=== PATIENT | female | born 1970 | race Caucasian/White ===

== ENCOUNTER 2018-04-22 14:02 | Emergency (ER) | payer OTHER, MEDICAID, SELFPAY ==
--- NOTE | 2018-04-22 14:14 | DI.RAD.S_ITS ---
PROCEDURE: XR FOOT LT MIN 3V INDICATIONS: heard a pop yesterday,painful to walk today TECHNIQUE: 3 views of the foot were acquired. COMPARISON: [facility] - [place], [place], ANKLE MIN 3VW (LT), 01/19/2008, 16:43. FINDINGS: Bones: No fractures or dislocations. No suspicious bony lesions. Soft tissues: No tibiotalar joint effusion. Achilles tendon appears normal. IMPRESSION: No visualized acute fracture or dislocation. However, if clinical concern and/or pain persist, short interval imaging followup in 7-10 days is recommended, as occult injury cannot be definitively excluded. Dictated by: Tonya Abbott M.D. on 04/22/2018 at 14:33 Approved by: Tonya Abbott M.D. on 04/22/2018 at 14:40
[2018-04-22 14:15] VITALS: BP 158/82; PULSE 103; RESP 19; TEMP 36.5; O2SAT 96; BMI 39.1
--- NOTE | 2018-04-22 14:40 | ED.LOWEXIN ---
HPI - Extremity Injury (Lower) <Yessi Maher PA-C - Last Filed: 04/22/18 22:13> General Chief Complaint: Extremity Injury, Lower Stated Complaint: 'hurt right foot' Time Seen by Provider: 04/22/18 14:40 Source: patient Mode of arrival: ambulatory Limitations: no limitations History of Present Illness HPI Narrative: This 48-year-old female complains of right foot pain since yesterday. She states that she was running up stairs wearing her work boots and heard a pop sound, then had difficulty bearing weight. She states that pain was worse with her boots off. She has no pain at rest, increased pain with trying to walk or bear weight though she can walk a little bit if she walks only on the inside of her foot. She denies any pain in the ankle, lower leg or knee. She denies any fall or other injury. She has been taking ibuprofen for pain. She does not have a local PCP. Related Data Home Medications Medication Instructions Recorded Confirmed ibuprofen [Advil] 400 mg PO QID PRN 04/22/18 04/22/18 Allergies Allergy/AdvReac Type Severity Reaction Status Date / Time nitrous oxide [NITROUS OXIDE] Allergy Unknown Verified 04/22/18 14:15 Review of Systems <Yessi Maher PA-C - Last Filed: 04/22/18 22:13> Review of Systems All systems reviewed & are unremarkable except as noted in HPI and below PFSH <Yessi Maher PA-C - Last Filed: 04/22/18 22:13> Comment: Denies EtOH Exam <Yessi Maher PA-C - Last Filed: 04/22/18 22:13> Narrative Exam Narrative: GENERAL APPEARANCE: Patient sitting comfortably, in no distress. MUSCULOSKELETAL: Right ankle and foot there is no effusion. Tender throughout the right 2nd through 5th metatarsals. No tenderness over the right ankle or toes. She has full range of motion nonweightbearing without tenderness. Achilles is intact by palpation NEUROVASCULAR: Right foot is warm and pink with brisk cap refill, sensation grossly intact Initial Vital Signs Initial Vital Signs: Vital Signs Temperature 97.7 F 04/22/18 14:15 Pulse Rate 103 H 04/22/18 14:15 Respiratory Rate 19 04/22/18 14:15 Blood Pressure 158/82 H 04/22/18 14:15 Pulse Oximetry 96 04/22/18 14:15 <Wellington Dueñas DO - Last Filed: 04/23/18 07:03> Initial Vital Signs Initial Vital Signs: Vital Signs Temperature 97.7 F 04/22/18 14:15 Pulse Rate 103 H 04/22/18 14:15 Respiratory Rate 19 04/22/18 14:15 Blood Pressure 158/82 H 04/22/18 14:15 Pulse Oximetry 96 04/22/18 14:15 Course <Yessi Maher PA-C - Last Filed: 04/22/18 22:13> Orders Ordered: ED Orders 04/22/18 14:14 XR foot LT min 3V Stat Vital Signs - 8 hr 04/22/18 14:15 04/22/18 15:38 Temperature 97.7 F Pulse Rate 103 H 85 Respiratory Rate 19 15 Blood Pressure 158/82 H Blood Pressure [Left Arm] 164/95 H Pulse Oximetry 96 98 <DO Heber Soto Last Filed: 04/23/18 07:03> Orders Ordered: ED Orders 04/22/18 14:14 XR foot LT min 3V Stat Vital Signs - 8 hr 04/22/18 14:15 04/22/18 15:38 Temperature 97.7 F Pulse Rate 103 H 85 Respiratory Rate 19 15 Blood Pressure 158/82 H Blood Pressure [Left Arm] 164/95 H Pulse Oximetry 96 98 MDM - Extremity Injury (Lower) <Yessi Maher PA-C - Last Filed: 04/22/18 22:13> Imaging Data foot: Radiologist's impression: [place] [address] XRay Report Signed Patient: Willow Hanks#: [id number] : 1970Acct:[id number] Age/Sex: 48 / FDate of Service: 04/22/18 Loc: ED Accession Number: [id number] Procedure: XR foot LT min 3V Ordering Provider: Yessi Maher P.A-C PROCEDURE: XR FOOT LT MIN 3V INDICATIONS: heard a pop yesterday,painful to walk today TECHNIQUE: 3 views of the foot were acquired. COMPARISON: [facility] - [place], CR, ANKLE MIN 3VW (LT), 01/19/2008, 16:43. FINDINGS: Bones: No fractures or dislocations. No suspicious bony lesions. Soft tissues: No tibiotalar joint effusion. Achilles tendon appears normal. IMPRESSION: No visualized acute fracture or dislocation. However, if clinical concern and/or pain persist, short interval imaging followup in 7-10 days is recommended, as occult injury cannot be definitively excluded. Dictated by: Tonya Abbott M.D. on 04/22/2018 at 14:33 Approved by: Tonya Abbott M.D. on 04/22/2018 at 14:40 Discharge Plan Departure Patient Disposition: Home Clinical Impression: Pain in metatarsus of right foot Discharge Date/Time: 04/22/18 15:54 Interventions: ED Discharge Assessment Last Done: 04/22/18 15:49 Instructions: DI for Foot Sprain Activity Restrictions/Additional Instructions: There was no fracture or bone problem found on your x-ray today, so your pain may be due to soft tissue injury or sprain in the tendons or ligaments in the foot. As we talked about, it is important that you rest and avoid bearing weight since it is painful. Please use the crutches and orthopedic shoe that we gave you. You may need repeat x-rays or further imaging studies if this is not improving in the next week. Please call [facility] and make an appointment with 1 of the podiatrists there (Dr. Plasencia or [place]) for follow-up. Take your ibuprofen 4 tablets (800 mg) every 8 hr with food instead of a higher dose less frequently. You can also add Tylenol and [id number] topical medicines as needed for pain. Prescriptions: No Action ibuprofen [Advil] 200 mg Tablet 400 mg PO QID PRN (Reason: Pain (Scale Score 1-3)) RF: 0 Referrals: Viridiana Marquez DPM [Physician] - <Wellington Dueñas DO - Last Filed: 04/23/18 07:03> Cosign ED Attending Cosgregature Attestation: I was available for consultation during this patient's emergency department encounter
--- NOTE | 2018-04-22 14:52 | ED_ITS ---
HPI - Extremity Injury (Lower) <Yessi Maher PA-C - Last Filed: 04/22/18 22:13> General Chief Complaint: Extremity Injury, Lower Stated Complaint: 'hurt right foot' Time Seen by Provider: 04/22/18 14:40 Source: patient Mode of arrival: ambulatory Limitations: no limitations History of Present Illness HPI Narrative: This 48-year-old female complains of right foot pain since yesterday. She states that she was running up stairs wearing her work boots and heard a pop sound, then had difficulty bearing weight. She states that pain was worse with her boots off. She has no pain at rest, increased pain with trying to walk or bear weight though she can walk a little bit if she walks only on the inside of her foot. She denies any pain in the ankle, lower leg or knee. She denies any fall or other injury. She has been taking ibuprofen for pain. She does not have a local PCP. Related Data Home Medications Medication Instructions Recorded Confirmed ibuprofen [Advil] 400 mg PO QID PRN 04/22/18 04/22/18 Allergies Allergy/AdvReac Type Severity Reaction Status Date / Time nitrous oxide [NITROUS OXIDE] Allergy Unknown Verified 04/22/18 14:15 Review of Systems <Yessi Maher PA-C - Last Filed: 04/22/18 22:13> Review of Systems All systems reviewed & are unremarkable except as noted in HPI and below PFSH <Yessi Maher PA-C - Last Filed: 04/22/18 22:13> Comment: Denies EtOH Exam <Yessi Maher PA-C - Last Filed: 04/22/18 22:13> Narrative Exam Narrative: GENERAL APPEARANCE: Patient sitting comfortably, in no distress. MUSCULOSKELETAL: Right ankle and foot there is no effusion. Tender throughout the right 2nd through 5th metatarsals. No tenderness over the right ankle or toes. She has full range of motion nonweightbearing without tenderness. Achilles is intact by palpation NEUROVASCULAR: Right foot is warm and pink with brisk cap refill, sensation grossly intact Initial Vital Signs Initial Vital Signs: Vital Signs Temperature 97.7 F 04/22/18 14:15 Pulse Rate 103 H 04/22/18 14:15 Respiratory Rate 19 04/22/18 14:15 Blood Pressure 158/82 H 04/22/18 14:15 Pulse Oximetry 96 04/22/18 14:15 <Wellington Dueñas DO - Last Filed: 04/23/18 07:03> Initial Vital Signs Initial Vital Signs: Vital Signs Temperature 97.7 F 04/22/18 14:15 Pulse Rate 103 H 04/22/18 14:15 Respiratory Rate 19 04/22/18 14:15 Blood Pressure 158/82 H 04/22/18 14:15 Pulse Oximetry 96 04/22/18 14:15 Course <Yessi Maher PA-C - Last Filed: 04/22/18 22:13> Orders Ordered: ED Orders 04/22/18 14:14 XR foot LT min 3V Stat Vital Signs - 8 hr 04/22/18 14:15 04/22/18 15:38 Temperature 97.7 F Pulse Rate 103 H 85 Respiratory Rate 19 15 Blood Pressure 158/82 H Blood Pressure [Left Arm] 164/95 H Pulse Oximetry 96 98 <DO Heber Soto Last Filed: 04/23/18 07:03> Orders Ordered: ED Orders 04/22/18 14:14 XR foot LT min 3V Stat Vital Signs - 8 hr 04/22/18 14:15 04/22/18 15:38 Temperature 97.7 F Pulse Rate 103 H 85 Respiratory Rate 19 15 Blood Pressure 158/82 H Blood Pressure [Left Arm] 164/95 H Pulse Oximetry 96 98 MDM - Extremity Injury (Lower) <Yessi Maher PA-C - Last Filed: 04/22/18 22:13> Imaging Data foot: Radiologist's impression: [place] [address] XRay Report Signed Patient: Willow Hanks#: [id number] : 1970Acct:[id number] Age/Sex: 48 / FDate of Service: 04/22/18 Loc: ED Accession Number: [id number] Procedure: XR foot LT min 3V Ordering Provider: Yessi Maher P.A-C PROCEDURE: XR FOOT LT MIN 3V INDICATIONS: heard a pop yesterday,painful to walk today TECHNIQUE: 3 views of the foot were acquired. COMPARISON: [facility] [place], ANKLE MIN 3VW (LT), 01/19/2008, 16 :43. FINDINGS: Bones: No fractures or dislocations. No suspicious bony lesions. Soft tissues: No tibiotalar joint effusion. Achilles tendon appears normal. IMPRESSION: No visualized acute fracture or dislocation. However, if clinical concern and/or pain persist, short interval imaging followup in 7-10 days is recommended , as occult injury cannot be definitively excluded. Dictated by: Tonya Abbott M.D. on 04/22/2018 at 14:33 Approved by: Tonya Abbott M.D. on 04/22/2018 at 14:40 Discharge Plan Departure Patient Disposition: Home Clinical Impression: Pain in metatarsus of right foot Discharge Date/Time: 04/22/18 15:54 Interventions: ED Discharge Assessment Last Done: 04/22/18 15:49 Instructions: DI for Foot Sprain Activity Restrictions/Additional Instructions: There was no fracture or bone problem found on your x-ray today, so your pain may be due to soft tissue injury or sprain in the tendons or ligaments in the foot. As we talked about, it is important that you rest and avoid bearing weight since it is painful. Please use the crutches and orthopedic shoe that we gave you. You may need repeat x-rays or further imaging studies if this is not improving in the next week. Please call [facility] and make an appointment with 1 of the podiatrists there (Dr. Plasencia or [place]) for follow-up. Take your ibuprofen 4 tablets (800 mg) every 8 hr with food instead of a higher dose less frequently. You can also add Tylenol and over-the -counter topical medicines as needed for pain. Prescriptions: No Action ibuprofen [Advil] 200 mg Tablet 400 mg PO QID PRN (Reason: Pain (Scale Score 1-3)) RF: 0 Referrals: Viridiana Marquez DPM [Physician] - <Wellington Dueñas DO - Last Filed: 04/23/18 07:03> Cosign ED Attending Cosgregature Attestation: I was available for consultation during this patient's emergency department encounter
[2018-04-22 15:38] VITALS: BP 164/95; PULSE 85; RESP 15; O2SAT 98
== END 2018-04-22 15:54 | disposition home or self-care (01) ==
PROVIDERS: Emergency Provider Internal Medicine
DX: M89.8X7 Other specified disorders of bone, ankle and foot (principal); Y93.02 Activity, running
CPT/HCPCS: 73630; 99282; 99283

== ENCOUNTER 2020-12-29 00:54 | Emergency (ER) | payer OTHER, MEDICAID, SELFPAY ==
[2020-12-29] VITALS (13 sets, daily range): BP systolic 152–205; BP diastolic 71–106; PULSE 77–100; RESP 24; TEMP 37.1; O2SAT 94–97; BMI 48.9
[2020-12-29 02:30] LABS: Add Manual Diff / Slide Review NO; Basophils Absolute Auto 100 /uL (0-100); Basophils Percent Auto 0.9 % (0-2); Eosinophils Absolute Auto 200 /uL (0-450); Eosinophils Percent Auto 1.5 % (2-4); Hematocrit 42.3 % (36-46); Lymphocytes Absolute Auto 3500 /uL (1100-4500); Lymphocytes Percent Auto 32.2 % (25-40); Mean Corpuscular HGB Conc 33.2 % (30-36); Mean Corpuscular Hemoglobin 29.4 PG (26-34); Mean Corpuscular Volume 88.7 fL (80-100); Monocytes Absolute Auto 800 /uL (0-900); Monocytes Percent Auto 7.7 % (3-14); Neutrophils Absolute Auto 6200 /uL (1500-7000); Neutrophils Percent Auto 57.7 % (50-75); Platelet Count 275 X10^3/uL (150-400); Red Blood Cell Count 4.77 X10^6/uL (4.0-5.2); Red Cell Distribution Width 14.7 % (11.6-14.8); White Blood Cell Count 10.7 X10^3/uL (4.5-11.0)
--- NOTE | 2020-12-29 02:32 | DI.US.S_ITS ---
PROCEDURE: US PERIPH VENOUS LOW EXTREM BI INDICATIONS: PAIN, EDEMA TECHNIQUE: Real-time imaging, as well as color and pulse Doppler interrogation, were performed of the deep veins of both legs from the inguinal ligament to the popliteal fossa. COMPARISON: None. FINDINGS: Right: The common femoral, femoral and popliteal veins are normally compressible, and free of intraluminal thrombus. Color and pulse Doppler demonstrate normal phasic intravascular flow. There is normal augmentation response to distal compression maneuver. Left: The common femoral, femoral and popliteal veins are normally compressible, and free of intraluminal thrombus. Color and pulse Doppler demonstrate normal phasic intravascular flow. There is normal augmentation response to distal compression maneuver. IMPRESSION: No evidence of deep vein thrombosis involving the right lower extremity or left lower extremity. Dictated by: Ana Elliott MD, PhD on 12/29/2020 at 8:13 Approved by: Ana Elliott MD, PhD on 12/29/2020 at 8:17
--- NOTE | 2020-12-29 02:35 | ED.SKABFB ---
HPI - Skin/Abscess/Foreign Bdy General Chief complaint: Skin/Abscess/Foreign Body Stated complaint: redness swelling lower legs Time Seen by Provider: 12/29/20 01:58 Source: patient Mode of arrival: Ambulatory Limitations: no limitations History of Present Illness HPI narrative: Patient complains onset 5 days ago bilateral leg pain and swelling. Patient states since then legs/caps twice sized the usually are. Has some small skin opening on the left posterior calf. No prior history of MRSA. Painful with walking. Has circumferential erythema and induration. No fever chills. Patient worked up in the past for pre diabetes. Currently on no medications for diabetes. No official diagnosis of diabetes Related Data Allergies Allergy/AdvReac Type Severity Reaction Status Date / Time nitrous oxide [NITROUS OXIDE] Allergy Unknown Verified 04/22/18 14:15 Review of Systems Review of Systems Narrative: GENERAL: Denies chills, fatigue, malaise, fever, sweats. HEENT: Denies sinus pain, ear pain, sore throat RESPIRATORY: Denies dyspnea, cough CARDIOVASCULAR: Denies chest pain, palpitations GASTROINTESTINAL: Denies nausea, vomiting, abdominal pain : Denies dysuria, frequency, hematuria MUSCULOSKELETAL: denies muscle or bony pain SKIN: Complains of rash/lesions/cellulitis NEUROLOGIC: Denies weakness, numbness ROS Unobtainable: All systems reviewed & are unremarkable except as noted in HPI and below Patient History Medical History (Updated 12/29/20 @ 04:11 by CRISTOBAL Jaeger-SHANTANU) Fibrocystic breast disease (FCBD) Morbid obesity with BMI of 45.0-49.9, adult Surgical History History of breast biopsy Hx of cholecystectomy Family History Mother Lung cancer Father Alzheimer's dementia Diabetes mellitus Sister Diabetes mellitus Grandmother Diabetes mellitus Social History Smoking Status: Current every day smoker Smoking Status: Current every day smoker alcohol intake frequency: 0-2 drinks per day Substance Use Type: does not use Exam Narrative Exam Narrative: GENERAL: in no distress, not toxic not dyspneic HEAD: Normocephalic. EYES: Pupils equal round No scleral icterus. CARDIOVASCULAR: Regular rate and rhythm without murmurs RESPIRATORY: Clear to auscultation. Breath sounds equal bilaterally. No wheezes, rales, or rhonchi. EXTREMITIES: No gross deformities. Bilateral symmetric erythema edema of the calves with induration. No palpable abscess. Very tender to touch. Erythema is circumferential distal half of each leg. No foot involvement. Feet are warm soft and pink with strong pedal pulses. No cyanosis. No palpable cords NEURO: AOx4. SKIN: Warm and dry PSYCH: Not anxious, is cooperative Initial Vital Signs Initial Vital Signs: Vital Signs Temperature 98.7 F 12/29/20 01:22 Pulse Rate 100 H 12/29/20 01:22 Respiratory Rate 24 12/29/20 01:22 Blood Pressure 153/71 H 12/29/20 01:22 Pulse Oximetry 97 12/29/20 01:22 Course Course Course Narrative: No new issues during course of stay Decision to Admit Date: 12/29/20 Decision to Admit time: 03:52 Orders Ordered: ED Orders 12/29/20 02:20 Complete Blood Count AUTO DIFF Stat Comprehensive Metabolic Panel Stat Lactate (Lactic Acid) Stat Procalcitonin Stat 12/29/20 02:32 US periph venous low extrem bi Stat 12/29/20 02:33 COVID19 - ADMIT (INSPECTOR OF DREDGING swab/PCR) Stat 12/29/20 03:51 Blood Culture Stat Acetaminophen (Acetaminophen 325 Mg Tablet) 650 mg PO Q6HR PRN PRN Reason: Fever/Mild Pain (1-3) Enoxaparin Sodium (Enoxaparin 40 Mg/0.4 Ml Syringe) 40 mg SUBCUT DAILY [facility] Lactated Ringer's (Lactated Ringers) 1,000 mls @ 100 mls/hr IV CONT [place] Last Admin: 12/29/20 04:42 Dose: 100 mls/hr Documented by: Ceftriaxone Sodium 1,000 mg/ (Sodium Chloride) 100 mls @ 200 mls/hr IV Q24H [facility] Ketorolac Tromethamine (Ketorolac 30 Mg/Ml Vial) 30 mg IV Q6HR PRN PRN Reason: Pain, Severe (7-10) Stop: 01/03/21 03:59 Lisinopril (Lisinopril 20 Mg Tablet) 20 mg PO DAILY [facility] Naloxone HCl (Naloxone 0.4 Mg/Ml Vial) 0.2 mg IV Q2MIN PRN PRN Reason: Opiate Reversal Ondansetron HCl (Ondansetron 4 Mg/2 Ml Inj) 4 mg IV Q8HR PRN PRN Reason: Nausea And Vomiting Pantoprazole Sodium (Pantoprazole Dr 20 Mg Tablet) 20 mg PO 0600 [place] Last Admin: 12/29/20 05:32 Dose: 20 mg Documented by: Discontinued Medications Doxycycline Hyclate 100 mg/ (Sodium Chloride) 100 mls @ 100 mls/hr IV NOW ONE Stop: 12/29/20 02:35 Last Infusion: 12/29/20 03:53 Dose: 0 mls/hr Documented by: Admin: 12/29/20 02:52 Dose: 100 mls/hr Documented by: SHAAN Reevaluation(s) Reevaluation #1: Patient agrees with admission plan. Understands indication Time: 03:52 Consultations Consultation #1: Spoke with Candice Daily, hospitalist, will admit Time: 03:52 Vital Signs Vital signs: Vital Signs - 8 hr 12/29/20 01:22 Temperature 98.7 F Pulse Rate 100 H Respiratory Rate 24 Blood Pressure 153/71 H Pulse Oximetry 97 MDM - Skin/Abscess/Foreign Bdy Differential Diagnosis Differential diagnosis: Likely cellulitis and other (DVT) Lab Data Attestation: I reviewed the patient's lab results. Result diagrams: 12/29/20 02:20 12/29/20 04:27 Labs: Lab Results 12/29/20 12/29/20 12/29/20 Range/Units 02:20 02:20 02:20 WBC 10.7 (4.5-11.0) X10^3/uL RBC 4.77 (4.0-5.2) X10^6/uL Hgb 14.0 (12.0-16.0) g/dL Hct 42.3 (36-46) % MCV 88.7 (80-100) fL MCH 29.4 (26-34) PG MCHC 33.2 (30-36) % RDW 14.7 (11.6-14.8) % Plt Count 275 (150-400) X10^3/uL Neut % (Auto) 57.7 (50-75) % Lymph % (Auto) 32.2 (25-40) % [place] % (Auto) 7.7 (3-14) % Eos % (Auto) 1.5 L (2-4) % Baso % (Auto) 0.9 (0-2) % Neut # (Auto) 6200 (6771-4344) /uL Lymph # (Auto) 3500 (4931-7125) /uL [place] # (Auto) 800 (0-900) /uL Eos # (Auto) 200 (0-450) /uL Baso # (Auto) 100 (0-100) /uL PT (10.1-12.7) SECONDS INR (0.9-1.3) Sodium 138 (137-145) mmol/L Potassium 4.0 (3.4-5.1) mmol/L Chloride 101 (98-107) mmol/L Carbon Dioxide 31 (22-32) mmol/L BUN 25 H (7-17) mg/dL Creatinine 0.81 (0.52-1.04) mg/dL Estimated GFR > 60.0 (>60) mL/min BUN/Creatinine Ratio 30.9 H (6-22) Glucose 129 H (70-100) mg/dL Hemoglobin A1c (4.0-6.0) % Lactate 0.9 (0.7-2.1) mmol/L Calcium 9.8 (8.4-10.2) mg/dL Total Bilirubin 0.3 (0.2-1.3) mg/dL AST 31 (14-36) IU/L ALT 22 (<35) IU/L Alkaline Phosphatase 125 (38-126) U/L Total Protein 8.0 (6.3-8.2) g/dL Albumin 4.5 (3.5-5.0) g/dL Globulin 3.5 (1.7-4.1) g/dL Albumin/Globulin Ratio 1.3 (1.0-2.8) Lipase (23-300) U/L Procalcitonin 0.05 (<0.5) ng/mL SARS-CoV-2 (PCR) (Negative) 12/29/20 12/29/20 12/29/20 Range/Units 02:20 02:20 02:20 WBC (4.5-11.0) X10^3/uL RBC (4.0-5.2) X10^6/uL Hgb (12.0-16.0) g/dL Hct (36-46) % MCV (80-100) fL MCH (26-34) PG MCHC (30-36) % RDW (11.6-14.8) % Plt Count (150-400) X10^3/uL Neut % (Auto) (50-75) % Lymph % (Auto) (25-40) % [place] % (Auto) (3-14) % Eos % (Auto) (2-4) % Baso % (Auto) (0-2) % Neut # (Auto) (6830-3824) /uL Lymph # (Auto) (4699-6980) /uL [place] # (Auto) (0-900) /uL Eos # (Auto) (0-450) /uL Baso # (Auto) (0-100) /uL PT 12.2 (10.1-12.7) SECONDS INR 1.1 (0.9-1.3) Sodium (137-145) mmol/L Potassium (3.4-5.1) mmol/L Chloride (98-107) mmol/L Carbon Dioxide (22-32) mmol/L BUN (7-17) mg/dL Creatinine (0.52-1.04) mg/dL Estimated GFR (>60) mL/min BUN/Creatinine Ratio (6-22) Glucose (70-100) mg/dL Hemoglobin A1c 7.0 H (4.0-6.0) % Lactate (0.7-2.1) mmol/L Calcium (8.4-10.2) mg/dL Total Bilirubin (0.2-1.3) mg/dL AST (14-36) IU/L ALT (<35) IU/L Alkaline Phosphatase (38-126) U/L Total Protein (6.3-8.2) g/dL Albumin (3.5-5.0) g/dL Globulin (1.7-4.1) g/dL Albumin/Globulin Ratio (1.0-2.8) Lipase 34 (23-300) U/L Procalcitonin (<0.5) ng/mL SARS-CoV-2 (PCR) (Negative) 12/29/20 Range/Units 02:33 WBC (4.5-11.0) X10^3/uL RBC (4.0-5.2) X10^6/uL Hgb (12.0-16.0) g/dL Hct (36-46) % MCV (80-100) fL MCH (26-34) PG MCHC (30-36) % RDW (11.6-14.8) % Plt Count (150-400) X10^3/uL Neut % (Auto) (50-75) % Lymph % (Auto) (25-40) % [place] % (Auto) (3-14) % Eos % (Auto) (2-4) % Baso % (Auto) (0-2) % Neut # (Auto) (2348-3815) /uL Lymph # (Auto) (7332-0877) /uL [place] # (Auto) (0-900) /uL Eos # (Auto) (0-450) /uL Baso # (Auto) (0-100) /uL PT (10.1-12.7) SECONDS INR (0.9-1.3) Sodium (137-145) mmol/L Potassium (3.4-5.1) mmol/L Chloride (98-107) mmol/L Carbon Dioxide (22-32) mmol/L BUN (7-17) mg/dL Creatinine (0.52-1.04) mg/dL Estimated GFR (>60) mL/min BUN/Creatinine Ratio (6-22) Glucose (70-100) mg/dL Hemoglobin A1c (4.0-6.0) % Lactate (0.7-2.1) mmol/L Calcium (8.4-10.2) mg/dL Total Bilirubin (0.2-1.3) mg/dL AST (14-36) IU/L ALT (<35) IU/L Alkaline Phosphatase (38-126) U/L Total Protein (6.3-8.2) g/dL Albumin (3.5-5.0) g/dL Globulin (1.7-4.1) g/dL Albumin/Globulin Ratio (1.0-2.8) Lipase (23-300) U/L Procalcitonin (<0.5) ng/mL SARS-CoV-2 (PCR) Negative (Negative) Imaging Data US - DVT: My Impression: Preliminary report from mathematical technician negative DVT bilateral legs Radiologist's Impression: Ultrasound bilateral legs read by overnight radiologist no evidence of deep vein thrombosis in the lower extremities bilaterally MDM Narrative Medical decision making narrative: Appropriate for admission. And extensive cellulitis bilaterally in very rapid short amount of time. Would benefit for IV antibiotics. Likely not get better with outpatient antibiotics Discharge Plan Departure Patient Disposition: Admitted as Observation Clinical Impression: Cellulitis Qualifiers: Site of cellulitis: unspecified site Qualified Code(s): L03.90 - Cellulitis, unspecified Admit Date/Time: 12/29/20 03:52 Admit Provider: Candice Daily
[2020-12-29 02:41] LABS: Alanine Aminotransferase 22 IU/L (<35); Albumin 4.5 g/dL (3.5-5.0); Albumin Globulin Ratio 1.3 (1.0-2.8); Alkaline Phosphatase 125 U/L (38-126); Aspartate Aminotransferase 31 IU/L (14-36); BUN Creatinine Ratio 30.9 (6-22); Bilirubin Total 0.3 mg/dL (0.2-1.3); Blood Urea Nitrogen 25 mg/dL (7-17); Calcium 9.8 mg/dL (8.4-10.2); Carbon Dioxide 31 mmol/L (22-32); Chloride 101 mmol/L (98-107); Estimated Glomerular Filt Rate > 60.0 mL/min (>60); Globulin 3.5 g/dL (1.7-4.1); Glucose 129 mg/dL (70-100); HEMOLYSIS < 15 (0-50); Sodium 138 mmol/L (137-145)
[2020-12-29] MEDS: DOXYCYCLINE 100 MG in SODIUM CHLORIDE 0.9% 100 ML IV (02:52)
[2020-12-29 02:54] LABS: Lactate (Lactic Acid) 0.9 mmol/L (0.7-2.1)
[2020-12-29 02:57] LABS: Procalcitonin 0.05 ng/mL (<0.5)
[2020-12-29 03:31] LABS: COVID19 - ADMIT (NP swab/PCR) Negative (Negative)
--- NOTE | 2020-12-29 04:04 | P.HP_ITS ---
History of Present Illness History of Present Illness Date Patient Seen: 12/29/20 Time Patient Seen: 04:04 Chief complaint: redness swelling lower legs Narrative: Patient is a 50-year-old female Willow Hanks who presented to the ED with a chief compliant bilateral leg swelling x 10 days. Then 5 days ago after being scratched by her kitten, the scratches developed in to larger open sores in the legs became red hot, painful, and angry. Patient states since then legs/calfs have doubled in size. Patient states the pain is greater in the left over the right. She endorses that she has had bilateral peripheral edema occasional No prior history of MRSA. But reports that her daughter has had multiple cases of cellulitis MRSA skin infections that she is needs to be treated for. Patient also states that she lives in an with her boyfriend and they move around [place] [facility] [place] [facility] using the park bathrooms and showers. Painful with walking. Has circumferential erythema and induration. No chest pain, shortness of breath, fever, chills, diaphoresis, or bodyaches. Patient reports that she has sensed a rapid heartbeat from time to time but never skipped beats. Patient denies any cardiac history, or any other medical history, with the exception of a work up in the past for pre diabetes. Currently on no medications, and is a half a pack a day smoker. Patient has slight hypertension and tachypnea upon admission. All of patient's labs are within normal limits, with the exception of a BUN of 25 and glucose 129. Lactate and procalcitonin are within normal limits. Lower extremity bilateral ultrasound is unremarkable for DVT. Patient has no pertinent medical history other than morbid obesity. Patient has multiple risk factors for Staph aureus MRSA due to exposure from a close family member, and use of public bathrooms, blood and wound cultures pending. Patient to be admitted for observation for lateral lower extremity cellulitis. Patient History Medical History (Updated 12/29/20 @ 04:11 by KWAME Jaeger) Fibrocystic breast disease (FCBD) Morbid obesity with BMI of 45.0-49.9, adult Surgical History History of breast biopsy Hx of cholecystectomy Family & Social History Family History Mother Lung cancer Father Alzheimer's dementia Diabetes mellitus Sister Diabetes mellitus Grandmother Diabetes mellitus Safety & Behavioral: Feels Safe in Current Yes Environment Been Physically Hurt or No Threatened By a Person Tobacco & Substance use: Smoking Status Current every day smoker alcohol intake frequency 0-2 drinks per day Substance Use Type does not use Meds Home Medications and Allergies Allergies Allergy/AdvReac Type Severity Reaction Status Date / Time nitrous oxide [NITROUS OXIDE] Allergy Unknown Verified 04/22/18 14:15 Review of Systems Review of Systems ROS: Yes All systems reviewed with the patient and are negative except as otherwise documented Musculoskeletal Comments: Bilateral leg pain, left greater than right Exam Vital Signs (past 8 hours): - 12/29/20 01:22 Temperature 98.7 F Pulse Rate 100 H Respiratory Rate 24 Blood Pressure 153/71 H Pulse Oximetry 97 Oxygen Delivery Method Room Air Narrative Exam Narrative: General: Patient is a pleasant well-developed, well-nourished morbidly obese female in no distress at this time. HEENT: Normocephalic, atraumatic, extraocular muscles intact, oral pharynx is clear and mucous membranes are moist. Neck is supple and symmetric, trachea is midline, no adenopathy, no thyroid enlargement, nontender, no masses palpated. Negative for JVD Chest: Normal AP diameter and contour without kyphoscoliosis, no nasal flaring, retractions, or tachypneic labored Lungs: Auscultation of all lung bangura are clear without adventitious sounds, wheezes, rhonchi, or rales. Cardio: S1 & S2 with regular rate and rhythm without murmur, rubs, or gallops, no carotid bruit, no cardiac pulsations present. Abdomen: Soft nontender, negative for organomegaly, or masses. Bowel sounds are present in all 4 quadrants without guarding or rebound, no CVA tenderness. Musculoskeletal: Bilateral symmetric, erythemic, edema, warm to touch, of the calves with induration. Blanchable, nonpitting. No palpable abscess. Multiple tac size open sores present to lower calf areas, without drainage in ad ditional multiple erythema could areas that appear like insect bites. Possible Tender to touch, greater on the left/right. Erythema is circumferential distal half of each leg. No foot involvement. Feet: skin is dry, cracked, all nails have onychomycosis involvement, radial and pedal pulses are normal. Skin: Warm dry and intact without rashes, ulcerations or petechiae. Neuro: Alert and orientated x3, strength is +5/5 in all extremities, sensation to touch intact, no gross deficits noted of cranial nerves. Psych: Patient has a well-kept appearance, appropriate affect, mental status attitude thought context and judgment are appropriate for age. Objective Labs Result Diagrams: 12/29/20 02:20 12/29/20 02:20 Labs: Laboratory Results - last 24 hr 12/29/20 12/29/20 12/29/20 02:20 02:20 02:20 WBC 10.7 RBC 4.77 Hgb 14.0 Hct 42.3 MCV 88.7 MCH 29.4 MCHC 33.2 RDW 14.7 Plt Count 275 Neut % (Auto) 57.7 Lymph % (Auto) 32.2 [place] % (Auto) 7.7 Eos % (Auto) 1.5 L Baso % (Auto) 0.9 Neut # (Auto) 6200 Lymph # (Auto) 3500 [place] # (Auto) 800 Eos # (Auto) 200 Baso # (Auto) 100 Sodium 138 Potassium 4.0 Chloride 101 Carbon Dioxide 31 BUN 25 H Creatinine 0.81 Estimated GFR > 60.0 BUN/Creatinine Ratio 30.9 H Glucose 129 H Lactate 0.9 Calcium 9.8 Total Bilirubin 0.3 AST 31 ALT 22 Alkaline Phosphatase 125 Total Protein 8.0 Albumin 4.5 Globulin 3.5 Albumin/Globulin Ratio 1.3 Procalcitonin 0.05 SARS-CoV-2 (PCR) 12/29/20 02:33 WBC RBC Hgb Hct MCV MCH MCHC RDW Plt Count Neut % (Auto) Lymph % (Auto) [place] % (Auto) Eos % (Auto) Baso % (Auto) Neut # (Auto) Lymph # (Auto) [place] # (Auto) Eos # (Auto) Baso # (Auto) Sodium Potassium Chloride Carbon Dioxide BUN Creatinine Estimated GFR BUN/Creatinine Ratio Glucose Lactate Calcium Total Bilirubin AST ALT Alkaline Phosphatase Total Protein Albumin Globulin Albumin/Globulin Ratio Procalcitonin SARS-CoV-2 (PCR) Negative Assessment & Plan Assessment & Plan narrative: 1 Cellulitis bilateral lower leg, acute, nonpurulent, present on admission -rule out osteomyelitis, gas gangrene necrotizing fasciitis. Determine if infection is staph MRSA-blood/wound cultures pending. -patient admitted for risk factors for MRSA, cellulitis with progressive cli nical findings and worsening signs/symptoms with signs of systemic toxicity- tachycardia -elevate affected legs, BIlateral lower leg ultrasound in the ED negative for DVT -monitor for hyponatremia elevated CPK or AST -wells criteria score: 1.5, Sofa score:0 -patient for observation, vital signs q.4 hours, intake and output monitored Q shift, weight measure daily, diet: Regular, IV fluids: LR at 100 cc/hour. -patient had a dose of doxycycline in the ED, ordered Rocephin IV 1 g Q 24 hours -daily labs ordered A1C, CMP, Procalcitonin, PT/INR, Lipase Qam, Blood cultures drawn in ED 2. Elevated blood pressure, acute possibly on chronic, present on admission -as evidence by initial blood sugar 164/85-ordered lisinopril 20 mg p.o. q.day 3. Elevated blood sugar, acute (likely on chronic, present on admission -will order A1c in the a.m. to determine diabetes status. 4. Morbid obesity as evidenced by BMI of 48.9, acute on chronic, present on admission -dietary consult ordered, consideration will be given to dietary counseling. Code status: Full code COVID PCR: Negative Designated surrogate decision maker: Daughter Michelle Matson DVT/VTE prophylaxis: Lovenox 40 mg/SCDs contraindicated Scores GCS [place] coma scale eye opening: Spontaneous [place] coma scale verbal response: Orientated [place] coma scale motor response: Obey commands [place] coma scale total score: 15 SOFA PaO2/FIO2: >=400 mmHg Platelets: >= 150 Bilirubin: < 1.2 mg/dL Hypotension: MAP >= 70 mmHg [place] Coma Scale: 15 Renal: < 1.2 mg/dL SOFA Score: 0 Wells' Criteria for PE Clinical signs and symptoms of DVT: No PE is #1 Dx or equally likely: No Heart rate > 100: Yes Immobilization at least 3 days or surg in previous 4 weeks: No History of PE or DVT: No Hemoptysis: No Malignancy w/Treatment within 6 months or palliative: No Wells' PE Score total: 1.5
[2020-12-29 04:30] LABS: Lipase 34 U/L (23-300)
[2020-12-29] MEDS: LACTATED RINGERS 1,000 ML 100 ML IV (04:42)
[2020-12-29 04:46] LABS: INR 1.1 (0.9-1.3); Prothrombin Time 12.2 SECONDS (10.1-12.7)
[2020-12-29 04:57] LABS: BUN Creatinine Ratio 33.3 (6-22); Blood Urea Nitrogen 24 mg/dL (7-17); Calcium 9.4 mg/dL (8.4-10.2); Carbon Dioxide 29 mmol/L (22-32); Chloride 102 mmol/L (98-107); Creatine Kinase 91 U/L (30-135); Estimated Glomerular Filt Rate > 60.0 mL/min (>60); Glucose 135 mg/dL (70-100); HEMOLYSIS < 15 (0-50); Potassium 3.9 mmol/L (3.4-5.1); Sodium 138 mmol/L (137-145)
[2020-12-29 05:05] LABS: NT-proBNP (BNP-Adult 18+) 103 pg/mL (<125)
[2020-12-29 05:13] LABS: Procalcitonin 0.05 ng/mL (<0.5)
[2020-12-29] MEDS: PANTOPRAZOLE DR 20 MG TABLET PO (05:32)
[2020-12-29] MEDS: lisinopriL 20 MG TABLET PO (07:42)
[2020-12-29] MEDS: ENOXAPARIN 40 MG/0.4 ML SYRINGE SUBCUT (09:16)
[2020-12-29] MEDS: cefTRIAXone 1,000 MG in SODIUM CHLORIDE 0.9% 100 ML 200 ML IV (09:16)
--- NOTE | 2020-12-29 10:48 | PC.NURSE ---
pt being d/c from ER by hospitalist. student accounts coordinator did d/c assessment since pt is admitted but boarding in the ER. IV removed.
--- NOTE | 2020-12-29 13:16 | CM.IDA ---
Initial DCP Assessment Note Patient is a 50 yo female, living in her RV w/spouse at the [facility]. Presents w/redness and swelling in her BLE. PCP: Unlisted Payer: Sylvester/LEVI According to chart review, patient is indp, lives w/spouse and their pets in their RV. Patient uses the public BR in the [place] for hygiene needs. Patient admitted and kept in the ER for treatment of cellulitis, seen and discharged by Dr Leach today. This HEADHUNTER discussed patient w/Dr Leach who denied any needs from this HEADHUNTER. Patient will DC back to RV w/prescribed po abx. No SW needs. JW
--- NOTE | 2020-12-29 19:14 | P.DS_ITS ---
History of Present Illness History of Present Illness Chief complaint: redness swelling lower legs Narrative: Patient is a 50-year-old female Willow Hanks who presented to the ED with a chief compliant bilateral leg swelling x 10 days. Then 5 days ago after being scratched by her kitten, the scratches developed in to larger open sores in the legs became red hot, painful, and angry. Patient states since then legs/calfs have doubled in size. Patient states the pain is greater in the left over the right. She endorses that she has had bilateral peripheral edema occasional No prior history of MRSA. But reports that her daughter has had multiple cases of cellulitis MRSA skin infections that she is needs to be treated for. Patient also states that she lives in an with her boyfriend and they move around from [facility] [place] [facility] using the park bathrooms and showers. Painful with walking. Has circumferential erythema and induration. No chest pain, shortness of breath, fever, chills, diaphoresis, or bodyaches. Patient reports that she has sensed a rapid heartbeat from time to time but never skipped beats. Patient denies any cardiac history, or any other medical history, with the exception of a work up in the past for pre diabetes. Currently on no medications, and is a half a pack a day smoker. Patient has slight hypertension and tachypnea upon admission. All of patient's labs are within normal limits, with the exception of a BUN of 25 and glucose 129. Lactate and procalcitonin are within normal limits. Lower extremity bilateral ultrasound is unremarkable for DVT. Patient has no pertinent medical history other than morbid obesity. Patient has multiple risk factors for Staph aureus MRSA due to exposure from a close family member, and use of public bathrooms, blood and wound cultures pending. Patient to be admitted for observation for lateral lower extremity cellulitis. Discharge Providers Provider Date of admission: 12/29/20 03:52 Discharge Date: 12/29/20 Consults: 12/29/20 04:01 Consult to Dietitian, Adult Routine Comment: Reason For Exam: morbid obesity Discharge provider: Get Leach MD Summary Hospital Course Discharge Diagnosis: 1. Bilateral lower extremity cellulitis 2. Venous stasis Patient was admitted for bilateral lower extremity cellulitis. There was no fever or elevated white blood cell count. She was started on Rocephin. She has macular erythema of the lower legs with some red papules and on the left burns she has a surface ulcer forming. She reported kidneys at home that scratched her legs. She remained stable and discharged following day on combination of cephalexin and Bactrim. She was also given 10 day prescription for Lasix to help with venous stasis edema. She will follow-up at outpatient clinic. Status at Discharge Cognitive/behavioral status at discharge: oriented Functional status at discharge: independent ambulation Overall status at discharge: patient is progressing back to baseline Exam Vital Signs (past 8 hours): Oxygen Delivery Method Room Air Objective Labs Result Diagrams: 12/29/20 02:20 12/29/20 04:27 Labs: Laboratory Results - last 24 hr 12/29/20 12/29/20 12/29/20 02:20 02:20 02:20 WBC 10.7 RBC 4.77 Hgb 14.0 Hct 42.3 MCV 88.7 MCH 29.4 MCHC 33.2 RDW 14.7 Plt Count 275 Neut % (Auto) 57.7 Lymph % (Auto) 32.2 [place] % (Auto) 7.7 Eos % (Auto) 1.5 L Baso % (Auto) 0.9 Neut # (Auto) 6200 Lymph # (Auto) 3500 [place] # (Auto) 800 Eos # (Auto) 200 Baso # (Auto) 100 PT INR Sodium 138 Potassium 4.0 Chloride 101 Carbon Dioxide 31 BUN 25 H Creatinine 0.81 Estimated GFR > 60.0 BUN/Creatinine Ratio 30.9 H Glucose 129 H Hemoglobin A1c Lactate 0.9 Calcium 9.8 Total Bilirubin 0.3 AST 31 ALT 22 Alkaline Phosphatase 125 Total Creatine Kinase NT-Pro-B Natriuret Pep Total Protein 8.0 Albumin 4.5 Globulin 3.5 Albumin/Globulin Ratio 1.3 Lipase Procalcitonin 0.05 SARS-CoV-2 (PCR) 12/29/20 12/29/20 12/29/20 02:20 02:20 02:20 WBC RBC Hgb Hct MCV MCH MCHC RDW Plt Count Neut % (Auto) Lymph % (Auto) [place] % (Auto) Eos % (Auto) Baso % (Auto) Neut # (Auto) Lymph # (Auto) [place] # (Auto) Eos # (Auto) Baso # (Auto) PT 12.2 INR 1.1 Sodium Potassium Chloride Carbon Dioxide BUN Creatinine Estimated GFR BUN/Creatinine Ratio Glucose Hemoglobin A1c 7.0 H Lactate Calcium Total Bilirubin AST ALT Alkaline Phosphatase Total Creatine Kinase NT-Pro-B Natriuret Pep Total Protein Albumin Globulin Albumin/Globulin Ratio Lipase 34 Procalcitonin SARS-CoV-2 (PCR) 12/29/20 12/29/20 02:33 04:27 WBC RBC Hgb Hct MCV MCH MCHC RDW Plt Count Neut % (Auto) Lymph % (Auto) [place] % (Auto) Eos % (Auto) Baso % (Auto) Neut # (Auto) Lymph # (Auto) [place] # (Auto) Eos # (Auto) Baso # (Auto) PT INR Sodium 138 Potassium 3.9 Chloride 102 Carbon Dioxide 29 BUN 24 H Creatinine 0.72 Estimated GFR > 60.0 BUN/Creatinine Ratio 33.3 H Glucose 135 H Hemoglobin A1c Lactate Calcium 9.4 Total Bilirubin AST ALT Alkaline Phosphatase Total Creatine Kinase 91 NT-Pro-B Natriuret Pep 103 Total Protein Albumin Globulin Albumin/Globulin Ratio Lipase Procalcitonin 0.05 SARS-CoV-2 (PCR) Negative [facility] Medical History (Updated 12/29/20 @ 04:11 by CRISTOBAL Jaeger-SHANTANU) Fibrocystic breast disease (FCBD) Morbid obesity with BMI of 45.0-49.9, adult Surgical History History of breast biopsy Hx of cholecystectomy Family History Mother Lung cancer Father Alzheimer's dementia Diabetes mellitus Sister Diabetes mellitus Grandmother Diabetes mellitus Social History Smoking Status: Current every day smoker Discharge Plan Discharge Plan Patient Disposition: Home Provider Discharge Comment: You were treated for cellulitis. Complete prescribed antibiotics. I have also prescribed diuretic to take for fluid in the legs. Follow up in clinic next week. Discharge orders & Medications Prescriptions: New sulfamethoxazole-trimethoprim [Bactrim DS] 800-160 mg tablet 1 tab PO Q12H Qty: 20 RF: 0 cephalexin 500 mg tablet 500 mg PO QID Qty: 40 RF: 0 furosemide 20 mg tablet 20 mg PO DAILY Qty: 10 RF: 0 mupirocin 2 % ointment 1 applic topical BID Qty: 15 RF: 0 Discharge Health Status Multidrug resistant organism: No MDRO Diet/Activity/Treatments Diet: Regular Skin/Wound/Dressing Care Report to your healthcare provider any signs of infection, such as:: chills, fever, unusual drainage and unusual redness Discharge Data Attending Provider: Candice Daily
== END 2020-12-29 10:47 | disposition admitted as inpatient to this hospital (09) ==
LOC: ED 03:06 → AC 03:53
PROVIDERS: Nurse Practitioner Family; Emergency Provider Emergency Medicine; Referring Provider Emergency Medicine
DX: L03.116 Cellulitis of left lower limb (principal); L03.115 Cellulitis of right lower limb; Z20.822 Contact with and (suspected) exposure to COVID-19
CPT/HCPCS: 36415; 80048; 80053; 82550; 83036; 83605; 83690; 83880; 84145; 85025; 85610; 87040; 87635; 93970; 96361; 96365; 96367; 96372; 99284; C9803; J0696; J1650

== ENCOUNTER 2021-02-15 01:52 | Emergency (ER) | payer OTHER, MEDICAID, SELFPAY ==
[2021-02-15 02:54] VITALS: BP 195/89; PULSE 101; RESP 22; TEMP 36.9; O2SAT 98; BMI 47.0
--- NOTE | 2021-02-15 04:23 | ED.WOUNDLAC ---
HPI - Wound/Laceration General Chief Complaint: Wound/Laceration Stated Complaint: leg cellulitis/ sore on left Time Seen by Provider: 02/15/21 04:09 Source: patient Mode of arrival: Ambulatory Limitations: no limitations History of Present Illness HPI narrative: This is a 51-year-old female comes emergency department with complaint of swelling, redness of bilateral lower extremities as well as a wound on her left calf which has not been healing. Patient states it has been present for some time. She was not having much drainage but has started developed a little bit of serosanguineous but occasionally purulent drainage and also has had increasing pain over the last week. Patient has not had any fevers but she has felt warm she denies any chest pain or shortness of breath. She denies any nausea or vomiting. She denies any issues other than intermittent constipation. She does have some urinary incontinence particularly in the mornings. Patient states that she has had swelling intermittently but it is much worse in her lower extremities than normal. She also notes that she has not seen a physician in some time. She was admitted here in December for cellulitis of her lower extremity and they suspected that it was secondary to cat scratches. She has multiple kids that live at home. Patient states that afterwards her her redness had improved she was initially on cephalexin this was later changed to Bactrim and that seemed to be much more effective. Patient states that the redness has been slowly creeping up over the past month. The main reason she came today was because of increasing pain at the wound. Related Data Previous Rx's Medication Instructions Recorded cephalexin 500 mg tablet 500 mg PO QID #40 tab 12/29/20 furosemide 20 mg tablet 20 mg PO DAILY #10 tab 12/29/20 mupirocin 2 % topical ointment 1 applic TOPICAL BID #15 g 12/29/20 sulfamethoxazole 800 1 tab PO Q12H #20 tab 12/29/20 mg-trimethoprim 160 mg tablet (Bactrim DS) furosemide 40 mg tablet (Lasix) 40 mg PO DAILY #7 tab 02/15/21 sulfamethoxazole 800 1 tab PO Q12H #20 tab 02/15/21 mg-trimethoprim 160 mg tablet (Bactrim DS) Allergies Allergy/AdvReac Type Severity Reaction Status Date / Time nitrous oxide [NITROUS OXIDE] Allergy Unknown Verified 04/22/18 14:15 Review of Systems Review of Systems ROS Unobtainable: All systems reviewed & are unremarkable except as noted in HPI and below Patient History Medical History Fibrocystic breast disease (FCBD) Morbid obesity with BMI of 45.0-49.9, adult Surgical History History of breast biopsy Hx of cholecystectomy Family History Mother Lung cancer Father Alzheimer's dementia Diabetes mellitus Sister Diabetes mellitus Grandmother Diabetes mellitus Social History Smoking Status: Current every day smoker Smoking Status: Current every day smoker alcohol intake frequency: 0-2 drinks per day Substance Use Type: does not use Exam Narrative Exam Narrative: GENERAL: Alert and oriented x three, female and mild distress. HEENT: Head normocephalic, atraumatic, EOMI, pupils reactive, face symmetric, moist mucous membranes NECK: Supple, full range of motion CARDIOVASCULAR: Regular rate and rhythm without murmurs, rubs or gallops. RESPIRATORY: Breath sounds equal bilaterally, no wheezes rales or rhonchi. ABDOMEN: Soft, nontender. Normoactive bowel sounds all 4 quadrants. No guarding or rebound, rigidity, no mass : No CVA tenderness EXTREMITIES: Normal range of motion, no clubbing. Patient has bilateral lower extremity edema 2+. Patient does have mild erythema bilateral lower extremities as well as hyperpigmentation and slight warmth over both lower extremities extending up about mid calf. Patient also has some brawny discoloration and hyperpigmentation of her lower extremities consistent with chronic venous stasis. Patient has normal sensation throughout. She has cap refill less than 2 seconds bilateral lower extremities. She does have a wound that is 1/2 cm on the left lower leg on the inner calf with small amount of purulent drainage on a 4 x 4. There is no active drainage at this time. There is erythematous subcutaneous tissue exposed. Area is tender to touch. Neurovascularly intact NEUROLOGICAL: Cranial nerves II through XII grossly intact. Moving all extremities SKIN: Warm, dry, no petechiae, no rashes noted. Initial Vital Signs Initial Vital Signs: Vital Signs Temperature 98.5 F 02/15/21 02:54 Pulse Rate 101 H 02/15/21 02:54 Respiratory Rate 22 02/15/21 02:54 Blood Pressure 195/89 H 02/15/21 02:54 Pulse Oximetry 98 02/15/21 02:54 Course Orders Ordered: ED Orders 02/15/21 03:45 Complete Blood Count AUTO DIFF Stat 02/15/21 03:49 Wound Culture and Gram Stain Stat 02/15/21 05:54 Basic Metabolic Panel Stat NT-proBNP (BNP-Adult 18+) Stat Procalcitonin Stat Troponin & CK Cardiac Panel Stat Discontinued Medications Furosemide (Furosemide 40 Mg/4 Ml Vial) 40 mg IV NOW ONE Stop: 02/15/21 04:44 Last Admin: 02/15/21 04:57 Dose: 40 mg Documented by: SHAAN Trimethoprim/Sulfamethoxazole (Trimeth/Sulfa 160/800 (Ds) Tablet) 1 tab PO NOW ONE Stop: 02/15/21 04:44 Last Admin: 02/15/21 04:56 Dose: 1 tab Documented by: SHAAN Vital Signs Vital signs: Vital Signs - 8 hr 02/15/21 02:54 02/15/21 07:09 Temperature 98.5 F Pulse Rate 101 H 97 H Respiratory Rate 22 20 Blood Pressure 195/89 H 212/102 H Pulse Oximetry 98 97 MDM - Wound/Laceration Lab Data Result diagrams: 02/15/21 03:45 02/15/21 05:54 Labs: Lab Results 02/15/21 02/15/21 02/15/21 Range/Units 03:45 05:54 05:54 WBC 10.9 (4.5-11.0) X10^3/uL RBC 4.72 (4.0-5.2) X10^6/uL Hgb 14.0 (12.0-16.0) g/dL Hct 41.6 (36-46) % MCV 88.2 (80-100) fL MCH 29.6 (26-34) PG MCHC 33.5 (30-36) % RDW 15.2 H (11.6-14.8) % Plt Count 264 (150-400) X10^3/uL Neut % (Auto) 57.2 (50-75) % Lymph % (Auto) 34.5 (25-40) % [place] % (Auto) 6.1 (3-14) % Eos % (Auto) 1.7 L (2-4) % Baso % (Auto) 0.5 (0-2) % Neut # (Auto) 6200 (2072-8590) /uL Lymph # (Auto) 3800 (3393-6071) /uL [place] # (Auto) 700 (0-900) /uL Eos # (Auto) 200 (0-450) /uL Baso # (Auto) 100 (0-100) /uL Sodium 138 (137-145) mmol/L Potassium 4.0 (3.4-5.1) mmol/L Chloride 101 (98-107) mmol/L Carbon Dioxide 30 (22-32) mmol/L BUN 20 H (7-17) mg/dL Creatinine 0.58 (0.52-1.04) mg/dL Estimated GFR > 60.0 (>60) mL/min BUN/Creatinine Ratio 34.5 H (6-22) Glucose 142 H (70-100) mg/dL Calcium 9.6 (8.4-10.2) mg/dL Total Creatine Kinase 70 (30-135) U/L CK-MB (CK-2) TNP CK-MB (CK-2) Rel Index TNP Troponin I < 0.012 (0.01-0.034) ng/mL NT-Pro-B Natriuret Pep 114 (<125) pg/mL Procalcitonin 0.05 (<0.5) ng/mL MDM Narrative Medical decision making narrative: Wound care referral sent. Patient has not been following regularly with primary care and was recommended does dose with primary care. Patient has bilateral lower extremity edema, does not any chest pain or shortness of breath, troponin a BNP their normal range. Patient is hypertensive initially upon arrival. She has had chronic lower extremity swelling that is worse than normal. She was admitted in the last month for similar symptoms was put on oral antibiotics discharge home and had some improvement with some recurrence. Patient was once again put on Lasix, she states the Bactrim was the most helpful for her wound and a referral was sent patient was encouraged to get established. Discharge Plan Departure Patient Disposition: Home Clinical Impression: Bilateral edema of lower extremity, Wound of left leg Instructions: DI for Wound Infection Activity Restrictions/Additional Instructions: Febrile your developing an infection of your extremity of your lower leg. I would recommend continuing oral antibiotics. Referrals also included for wound care. Call for an appointment. Paperwork has been filled out today to be faxed to the office. Also included is options for follow-up with primary care. Prescription to [facility]. Please return for fevers, worsening swelling of your lower extremities, increasing purulent drainage, fevers, chest pain or shortness of breath, persistent vomiting, black or bloody stools or other new or concerning symptoms. Prescriptions: New sulfamethoxazole-trimethoprim [Bactrim DS] 800-160 mg tablet 1 tab PO Q12H Qty: 20 RF: 0 furosemide [Lasix] 40 mg tablet 40 mg PO DAILY Qty: 7 RF: 0 No Action sulfamethoxazole-trimethoprim [Bactrim DS] 800-160 mg tablet 1 tab PO Q12H Qty: 20 RF: 0 cephalexin 500 mg tablet 500 mg PO QID Qty: 40 RF: 0 furosemide 20 mg tablet 20 mg PO DAILY Qty: 10 RF: 0 mupirocin 2 % ointment 1 applic topical BID Qty: 15 RF: 0 Referrals: Sergio Argueta MD [Physician] - Luis Cook MD [Physician] -
[2021-02-15 04:50] LABS: Add Manual Diff / Slide Review NO; Basophils Absolute Auto 100 /uL (0-100); Basophils Percent Auto 0.5 % (0-2); Eosinophils Absolute Auto 200 /uL (0-450); Eosinophils Percent Auto 1.7 % (2-4); Hematocrit 41.6 % (36-46); Lymphocytes Absolute Auto 3800 /uL (1100-4500); Lymphocytes Percent Auto 34.5 % (25-40); Mean Corpuscular HGB Conc 33.5 % (30-36); Mean Corpuscular Hemoglobin 29.6 PG (26-34); Mean Corpuscular Volume 88.2 fL (80-100); Monocytes Absolute Auto 700 /uL (0-900); Monocytes Percent Auto 6.1 % (3-14); Neutrophils Absolute Auto 6200 /uL (1500-7000); Neutrophils Percent Auto 57.2 % (50-75); Platelet Count 264 X10^3/uL (150-400); Red Blood Cell Count 4.72 X10^6/uL (4.0-5.2); Red Cell Distribution Width 15.2 % (11.6-14.8); White Blood Cell Count 10.9 X10^3/uL (4.5-11.0)
[2021-02-15] MEDS: TRIMETH/SULFA 160/800 (DS) TABLET 1 TAB PO (04:56)
[2021-02-15] MEDS: FUROSEMIDE 40 MG/4 ML VIAL IV (04:57)
[2021-02-15 06:13] LABS: BUN Creatinine Ratio 34.5 (6-22); Blood Urea Nitrogen 20 mg/dL (7-17); Calcium 9.6 mg/dL (8.4-10.2); Carbon Dioxide 30 mmol/L (22-32); Chloride 101 mmol/L (98-107); Creatine Kinase 70 U/L (30-135); Estimated Glomerular Filt Rate > 60.0 mL/min (>60); Glucose 142 mg/dL (70-100); HEMOLYSIS < 15 (0-50); Sodium 138 mmol/L (137-145)
[2021-02-15 06:25] LABS: NT-proBNP (BNP-Adult 18+) 114 pg/mL (<125); Troponin I < 0.012 ng/mL (0.01-0.034)
[2021-02-15 06:29] LABS: Procalcitonin 0.05 ng/mL (<0.5)
[2021-02-15 07:09] VITALS: BP 212/102; PULSE 97; RESP 20; O2SAT 97
== END 2021-02-15 07:11 | disposition home or self-care (01) ==
PROVIDERS: Emergency Provider Emergency Medicine
DX: R60.0 Localized edema (principal); S81.802A Unspecified open wound, left lower leg, initial encounter
CPT/HCPCS: 36415; 80048; 82550; 83880; 84145; 84484; 85025; 87070; 87075; 87077; 87147; 87186; 87205; 96374; 99283; 99284; J1940